=== PATIENT | male | born 1980 | race Caucasian/White ===

== ENCOUNTER 2020-02-15 10:47 | Emergency (ER) | payer SELFPAY ==
[~2020-02-15] VITALS: Ht 165.1 cm; Wt 94.8 kg
[2020-02-15 10:50] VITALS: BP 130/73
--- NOTE | 2020-02-15 10:57 | NUR ---
dr green at bedside evaluating pt.
--- NOTE | 2020-02-15 11:00 | NUR ---
40/M presents to ED with complaints of left lower leg pain x2 weeks. Patient states he had a possible injury to left leg x2 weeks and states there is redness developing over the last two days with worsening pain. Patient states he went to urgent care yesterday and was given rx for Metformin and Bactrim. Pt states he did not agree with the diagnosis he received in urgent care and came here. Patient has no open wounds. Denies fever or chills.
[2020-02-15] MEDS ORDERED: KETOROLAC 60 MG/2 ML VIAL IM ONE (11:05)
[2020-02-15 11:48] VITALS: BP 132/75
--- NOTE | 2020-02-15 11:48 | NUR ---
Patient discharged with v/s stable. Written and verbal after care instructions given and explained. Patient alert, oriented and verbalized understanding of instructions. Ambulatory with steady gait. All questions addressed prior to discharge. ID band removed. Patient advised to follow up with PMD. Rx of Motrin 800mg, Keflex 500mg and [place] 5mg-325mg given. Patient educated on indication of medication including possible reaction and side effects. Opportunity to ask questions provided and answered.
== END 2020-02-15 11:48 | disposition home or self-care (01) ==
LOC: MED 10:47
DX: L03.116 Cellulitis of left lower limb (principal); E11.9 Type 2 diabetes mellitus without complications
CPT/HCPCS: 96372; 99283; J1885